=== PATIENT | male | born 1995 | race Caucasian/White ===

== ENCOUNTER → 2018-09-30 | Outpatient (CLI) | payer OTHER ==
[~2018-09-30] MED LIST: IBUP-136 PO; NAPR500T75 PO
--- NOTE | 2018-09-30 15:26 | RADIOLOGY IMAGING REPORT ---
[place] [facility] [place] NAME: Donovan Jacobson : 1995 MR: [id number] V: [id number] EXAM DATE: ORDERING PHYSICIAN: JOSE APPLE TECHNOLOGIST: Location: [facility] Patient: Donovan Jacobson : 1995 Visit/Account:[id number] Date of Sevice: 09/30/2018 EXAMINATION: MRI Brain without intravenous contrast MRA Head without intravenous contrast HISTORY: Headache. COMPARISON: None available. TECHNIQUE: MRI brain: Multi-planar, multi-sequence brain MRI was performed without IV gadolinium. MRA head: [id number]-flight angiography was performed in the axial plane on the [place] with out IV gadolinium. FINDINGS: MRI BRAIN: Brain volume: Normal. Sagittal midline structures: Negative. Ventricles: Negative. Acute ischemic changes: None. Hemorrhage: None. Masses / edema: 1.2 x 0.9 x 0.5 cm slightly heterogeneous T2 and FLAIR hyperintense lesion in the pe riventricular white matter adjacent to the left frontal horn. No significant mass effect or volume l oss in this region. Ferguson-white: Negative. White matter: Otherwise negative. Vessels: Negative. Extra-axial: None. Calvarium / scalp: Negative. Skull base: Negative. Visualized sinuses / orbits: Mild mucosal thickening in the maxillary sinuses and ethmoid air cells. Leftward nasal septal deviation. Visualized upper neck: Negative. MRA HEAD: Petrous carotids: Negative. Carotid siphons / bifurcations: Negative. Anterior / Posterior communicating arteries: Negative. Anterior cerebral arteries: Negative. Middle cerebral arteries: Negative. Intra-cranial vertebral arteries: Negative. Basilar artery: Negative. PICA / AICA / SCA / LAST PUTTER AWAY: Negative. Non-angiographic Findings: None significant. IMPRESSION: 1. 1.2 x 0.9 x 0.5 cm slightly heterogeneous T2 and FLAIR hyperintense lesion in the periventricular white matter adjacent to the left frontal horn. No significant mass effect or volume loss in this r egion. The differential includes demyelination, nonspecific gliosis, and tumor. Follow-up brain MRI with contrast in 3 months is recommended. Comparison with any prior brain imaging is also recommend ed if available. 2. Otherwise no acute intracranial abnormality. 3. Mild mucosal thickening in the maxillary sinuses and ethmoid air cells. Leftward nasal septal de viation. 4. Normal MRA of the [place]. Report Dictated By: Sherman Renteria MD at 09/30/2018 3:08 PM Report E-Signed By: Sherman Renteria MD at 09/30/2018 3:21 PM WSN:[id number]
--- NOTE | 2018-09-30 15:26 | RADIOLOGY IMAGING REPORT ---
FACILITY: [facility] - [place] PATIENT NAME: Donovan Jacobson : 1995 MR: [id number] V: [id number] EXAM DATE: ORDERING PHYSICIAN: JOSE APPLE TECHNOLOGIST: Location: Patient: Donovan Jacobson : 1995 Visit/Account:[id number] Date of Sevice: 09/30/2018 EXAMINATION: MRI Brain without intravenous contrast MRA Head without intravenous contrast HISTORY: Headache. COMPARISON: None available. TECHNIQUE: MRI brain: Multi-planar, multi-sequence brain MRI was performed without IV gadolinium. MRA head: [id number]-flight angiography was performed in the axial plane on the [place] with out IV gadolinium. FINDINGS: MRI BRAIN: Brain volume: Normal. Sagittal midline structures: Negative. Ventricles: Negative. Acute ischemic changes: None. Hemorrhage: None. Masses / edema: 1.2 x 0.9 x 0.5 cm slightly heterogeneous T2 and FLAIR hyperintense lesion in the pe riventricular white matter adjacent to the left frontal horn. No significant mass effect or volume l oss in this region. Ferguson-white: Negative. White matter: Otherwise negative. Vessels: Negative. Extra-axial: None. Calvarium / scalp: Negative. Skull base: Negative. Visualized sinuses / orbits: Mild mucosal thickening in the maxillary sinuses and ethmoid air cells. Leftward nasal septal deviation. Visualized upper neck: Negative. MRA HEAD: Petrous carotids: Negative. Carotid siphons / bifurcations: Negative. Anterior / Posterior communicating arteries: Negative. Anterior cerebral arteries: Negative. Middle cerebral arteries: Negative. Intra-cranial vertebral arteries: Negative. Basilar artery: Negative. PICA / AICA / SCA / FRUIT OR NUT PICKER: Negative. Non-angiographic Findings: None significant. IMPRESSION: 1. 1.2 x 0.9 x 0.5 cm slightly heterogeneous T2 and FLAIR hyperintense lesion in the periventricular white matter adjacent to the left frontal horn. No significant mass effect or volume loss in this r egion. The differential includes demyelination, nonspecific gliosis, and tumor. Follow-up brain MRI with contrast in 3 months is recommended. Comparison with any prior brain imaging is also recommend ed if available. 2. Otherwise no acute intracranial abnormality. 3. Mild mucosal thickening in the maxillary sinuses and ethmoid air cells. Leftward nasal septal de viation. 4. Normal MRA of the [place]. Report Dictated By: Sherman Renteria MD at 09/30/2018 3:08 PM Report E-Signed By: Sherman Renteria MD at 09/30/2018 3:21 PM WSN:[id number]
== END ==
LOC: MRI 02:01
PROVIDERS: ATTEND Nurse Practitioner Family
DX: J32.2 Chronic ethmoidal sinusitis (principal); J01.00 Acute maxillary sinusitis, unspecified; J34.2 Deviated nasal septum
CPT/HCPCS: 70544; 70551

== ENCOUNTER 2018-10-04 01:53 | Day surgery (SDC) | payer OTHER ==
[~2018-10-04] VITALS: Ht 203.2 cm; Wt 108.0 kg
[2018-10-04 10:40] VITALS: BP 121/87
[2018-10-04] MEDS ORDERED: LIDOCAINE/SOD BICARB 8.4% SYR ID ONE (10:55)
[2018-10-04] MEDS ORDERED: NORMOSOL R SOLN(*) 1000 ML BAG 1,000 ML IV PRN (10:55)
[2018-10-04] MEDS ORDERED: PROPOFOL EMUL(*) 10MG/ML 20 ML 60 ML ONE (13:23)
[2018-10-04] MEDS ORDERED: LIDOCAINE MPF 1% 5 ML VIAL ONE (13:25)
[2018-10-04] MEDS ORDERED: PROPOFOL EMUL(*) 10MG/ML 20 ML 40 ML ONE (13:45)
[2018-10-04 14:17] VITALS: BP 103/69
[2018-10-04 14:30] VITALS: BP 102/64
--- NOTE | 2018-10-04 14:36 | Post Operative Note ---
Operative Note - ENT Operative Day Date: Oct 04, 2018 Time: 14:32 Physicians Surgeon: Aaron Alergia MD, FACS Metrology Specialist: None Anesthesia: MAC Diagnosis Pre-Op Diagnosis: 1. GERD 2. Rectal Bleeding Post-Op Diagnosis: Same - no bleeding source identified Procedure Findings: no sources of acute blood loss identified. Procedure(s): 1. EGD 2. Colonoscopy to cecum Procedure: EGD - sedation administered. Patient rolled onto his left side. Scope passed easily into his esophagus. Advanced to the 2nd portion of the duodenum. No abnormalities noted in the duodenum, stomach or esophagus noted. An uniform Z-Line identified. Colonoscopy: External examination was normal. GABRIELLA was normal with a normal prostate. The scope was advanced to the cecum without difficulty. The prep was good with some liquid stool that was able to be aspirated. The cecum was identified by the ileocecal valve. Withdrawal of the scope did not reveal any polyps or diverticulosis. No significant hemorrhoids were identifed on retroflexion in the rectum. He tolerated the procedure well. Specimen Removed:(Maybe N/A): N/A Complications: None Fluids Estimated Blood Loss: none AARON ALEGRIA MD Oct 04, 2018 14:36
[2018-10-04 14:59] VITALS: BP 112/90
[2018-10-04 15:18] VITALS: BP 113/77
== END 2018-10-04 15:35 | disposition home or self-care (01) ==
LOC: OR 01:53
PROVIDERS: ATTEND Surgery
DX: K21.9 Gastro-esophageal reflux disease without esophagitis (principal); K62.5 Hemorrhage of anus and rectum
CPT/HCPCS: 00811; 43235; 45378; J2001; J2704

== ENCOUNTER → 2019-03-07 | Outpatient (CLI) | payer OTHER ==
[~2019-03-07] MED LIST changes: +GADOBENATE 529MG/1ML 15ML VIAL IVP ONE
--- NOTE | 2019-03-07 10:51 | RADIOLOGY IMAGING REPORT ---
FACILITY: [facility] PATIENT NAME: Donovan Jacobson : 1995 MR: [id number] V: [id number] EXAM DATE: ORDERING PHYSICIAN: JOSE APPLE TECHNOLOGIST: Location: [facility] Patient: Donovan Jacobson : 1995 Visit/Account:[id number] Date of Sevice: 03/07/2019 Examination: MR brain without and with contrast History: Severe headache with exercise Comparison: 09/30/2018 Technique: Multiplane MR imaging was performed through the brain without and with contrast. 15 cc IV multihance was administered. Findings: Diffusion: None Ventricles: Normal Midline shift: None Extraxial fluid: None Midline craniocervical structures: Normal Parenchyma: Unchanged nonenhancing, partially cystic left frontal periventricular white matter high s ignal measures up to 9 mm AP dimension as before. Enhancement: No pathologic enhancement Vascular flow voids: Normal Orbits and paranasal sinuses: Mild unchanged bilateral maxillary sinus mucosal thickening. Other: No significant additional finding. Impression: 1. Unchanged nonenhancing partially cystic left frontal periventricular white matter high signal kassie suring up to 9 mm AP dimension. This may represent the residua of prior nonspecific ischemia, inflammation/infection or demyelination . A neoplasm is felt less likely but as before cannot be entirely excluded. Follow-up brain MR in one year may be warranted to ensure stability. 2. Otherwise unremarkable brain MR without and with contrast. Report Dictated By: Claudy Lujan MD at 03/07/2019 10:37 AM Report E-Signed By: Claudy Lujan MD at 03/07/2019 10:47 AM WSN:[id number]
== END ==
LOC: MRI 06:53
PROVIDERS: ATTEND Nurse Practitioner Family
DX: G44.84 Primary exertional headache (principal)
CPT/HCPCS: 70553; A9577